=== PATIENT | female | born 1965 | race Caucasian/White ===

== ENCOUNTER 2020-10-03 14:34 | Emergency (ER) | payer MEDICAID, OTHER ==
[2020-10-03 16:16] LABS: BLOOD UREA NITROGEN,BUN 11 mg/dL (7.0-18.0); CARBON DIOXIDE,CO2 28.2 mmol/L (21.0-32.0); CHLORIDE,CL 108 mmol/L (98-107); GLUCOSE RANDOM 108 mg/dL (74-106); LIPASE 160 U/L (73-393); POTASSIUM,K 3.7 mmol/L (3.5-5.1); SODIUM,NA 143 mmol/L (136-145)
--- NOTE | 2020-10-03 16:16 | CT ---
HISTORY: Right flank pain. TECHNIQUE: Noncontrast CT abdomen and pelvis. COMPARISON: No prior. FINDINGS: The liver demonstrates a nodular contour compatible with cirrhosis. Gallstones within a not overly distended gallbladder. Borderline mild splenomegaly with the spleen measuring 13 cm transverse. Adrenal glands are normal. No focal pancreatic abnormality. No hydronephrosis. No obstructive urinary calculus. No renal mass. Urinary bladder nondistended. Prior hysterectomy. Left pelvic calcification is likely a phlebolith. - No small bowel obstruction. The appendix is not seen and may be surgically absent. No diverticulitis. No fluid collection or free air. - Atherosclerotic changes of the abdominal aorta without aneurysm. - 8-9 mm right lower lobe pulmonary nodule image #12 series 201. Small area of scarring versus atelectasis within the lingula. - Degenerative changes of the spine. No acute fractures. Degenerative changes of the sacroiliac joints. IMPRESSION: 1. Indeterminate 8-9 mm right lower lobe pulmonary nodule. Recommend obtaining a CT of the entire chest to assess for additional nodules. 2. No hydronephrosis or urinary calculus. 3. Gallstones. 4. Cirrhotic liver. 5. Borderline mild splenomegaly. 6. The appendix is not seen and may be surgically absent. Please note that all CT scans at this facility use dose modulation, iterative reconstruction, and/or weight-based dosing when appropriate to reduce radiation dose to as low as reasonably achievable. Dictated by Alhaji Aldrich MD @ 10/03/2020 4:15:[address] Alhaji Aldrich @ Oct 03 2020 4:15PM
--- NOTE | 2020-10-03 17:43 | US ---
Indication: Right upper quadrant pain with transaminitis Technique: Grade scan could of ultrasound of the right upper quadrant. Comparison: CT scan abdomen and pelvis from same day. Findings: The liver is normal in echogenicity. No intrahepatic biliary ductal dilatation is identified. The liver measures 16.1 centimeters in maximum dimension. No intrahepatic masses are identified. The gallbladder demonstrates gallstones. No sonographic Sierra`s sign is identified. The gallbladder wall measures up to 1.8 millimeters in thickness. The common bile duct measures 2.6 millimeters. The visualized portions of the pancreas are grossly normal. The right kidney measures 11.1 x 4.8 x 6.1 centimeters in size. No hydronephrosis or perinephric free fluid is identified. No free fluid is identified in the right upper quadrant. Impression: Cholelithiasis without evidence of cholecystitis. Dictated by Ruma Tellez MD @ 10/03/2020 5:42:[address] Ruma Tellez @ Oct 03 2020 5:42PM
--- NOTE | 2020-10-03 18:06 | EDM.PDOC ---
ED HPI GENERAL MEDICAL PROBLEM - General Chief Complaint: Genitourinary Problem Stated Complaint: KIDNEY STONE Time Seen by Provider: 10/03/20 14:35 Source of Information: Reports: Patient History Limitations: Reports: No Limitations - History of Present Illness INITIAL COMMENTS - FREE TEXT/NARRATIVE: HISTORY AND PHYSICAL: History of present illness: Patient is a 55-year-old female who presents to the ED today with concern of urinary incontinence and right flank pain that has been constant since she had a kidney stone 3 months ago. Patient states that she is concerned that she never passed the kidney stone and states that it was 2 to 3 mm and was diagnosed back home. Patient states that she recently moved [place] a few weeks ago but has had the right flank pain and urinary incontinence ever since her kidney stone was prior diagnosed. Patient states that she never followed up with the urologist as she knew she was moving to [place]. Patient states that she has been wearing a pad in her underwear due to the urinary incontinence for the past 3 months and states that some days the urinary incontinence is worse than others. Patient denies any low back pain associated with urinary incontinence. Patient states that she has had the same right flank pain since she was told she had a prior kidney stone and denies any change in this over the past 3 months. Patient denies any other symptoms or concerns. Patient does have a history of gallstones. Patient denies fever, chills, chest pain, shortness of breath, or cough. Denies headache, neck stiff ness, change in vision, syncope, or near syncope. Denies nausea, vomiting, diarrhea, constipation, or dysuria. Has not noted any blood in urine or stool. Patient has been eating and drinking appropriately. Review of systems: As per history of present illness and below otherwise all systems reviewed and negative. Past medical history: As per history of present illness and as reviewed below otherwise no ncontributory. Surgical history: As per history of present illness and as reviewed below otherwise noncontributory. Social history: See social history for further information Family history: As per history of present illness and as reviewed below otherwise noncontributory. Physical exam: General: Patient is alert, oriented, and in no acute distress. Patient sitting comfortably on exam table. Vitals stable and reviewed by me HEENT: Atraumatic, normocephalic, pupils equal and reactive bilaterally, negative for conjunctival pallor or scleral icterus, mucous membranes moist, TMs normal bilaterally, throat clear, neck supple, nontender, trachea midline. No drooling or trismus noted. No meningeal signs. No hot potato voice noted. Lungs: Clear to auscultation, breath sounds equal bilaterally, chest nontender. Heart: S1S2, regular rate and rhythm without overt murmur Abdomen: Soft, nondistended, mild to moderate right lower quadrant tenderness without guarding, negative rebound. Negative for masses or hepatosplenomegaly. Negative for costovertebral tenderness. Pelvis: Stable nontender. Genitourinary: Deferred. Rectal: Deferred. Skin: Intact, warm, dry. No lesions or rashes noted. Extremities: Atraumatic, negative for cords or calf pain. Neurovascular unremarkable. Neuro: Awake, alert, oriented. Cranial nerves II through XII unremarkable. Cerebellum unremarkable. Motor and sensory unremarkable throughout. Exam nonfocal. Notes: Upon arrival to the ED, patient is vitally stable and well-appearing. She does has some mild right lower quadrant abdominal pain but no CVA tenderness on exam. Presents to the ED today secondary to urinary incontinence that has been increasing over the past 3 months, right flank pain that has been persistent since a prior kidney stone 3 months ago. Will perform routine labwork and obtain abdominal pelvic CT scan without contrast as patient has had continued right flank pain since a prior diagnosis of a kidney stone 3 months ago. CBC shows thrombocytopenia at 118 and mild derangements are unremarkable. CMP shows a mild elevation in AST of 99 ALT 95 and alk phos of 188. Will obtain a right upper quadrant ultrasound. Urinalysis showed 0-2 white blood cells with 1-5 red blood cells with trace leukocyte Estrace, negative hCG. No obvious source of infection. Lipase is within normal limits. RUQ US scan shows cholelithiasis without evidence of cholecystitis and a nondilated common bile duct of 2.[address] shows an indeterminate 8 to 9 mm right lower lobe pulmonary nodule. No hydronephrosis or urinary calculus. Gallstones. Cirrhotic liver. Borderline mild splenomegaly. The appendix is not seen and may be surgically absent. All incidental findings of imaging today discussed with patient importance to have this followed up with her primary care provider. Upon reevaluation of patient, she remains comfortable and vitally stable throughout stay in ED. All incidental findings of imaging and lab work today discussed with patient and importance to have this followed up with her primary care provider and the general surgeon in regards to her gallstones. Signs and symptoms are prompt return to the ED thoroughly discussed with patient. Discussed importance for follow-up with a primary care provider and the general surgeon. Voices understanding and is agreeable to plan of care. Denies any further quest ions or concerns at this time. Diagnostics: CBC, CMP, UA, urine culture, urine hCG, lipase, abdominal pelvic CT, right upper quadrant ultrasound Therapeutics: Toradol was offered to patient but she declines at this time Prescription: None Impression: Urinary incontinence Right flank pain Transaminitis Gallstones without evidence of cholecystitis Plan: 1. You can take Tylenol as directed for pain and discomfort. 2. Follow-up with your primary care provider/general surgery/himself care provider as discussed. Return to the ED as needed and as discussed. Definitive disposition and diagnosis as appropriate pending reevaluation and review of above. Right side Pain Score (Numeric/FACES): 6 - Related Data Allergies Allergy/AdvReac Type Severity Reaction Status Date / Time erythromycin base Allergy Rash Verified 10/03/20 15:13 morphine Allergy Other Verified 10/03/20 15:13 Penicillins Allergy Rash Verified 10/03/20 15:13 Sulfa (Sulfonamide Allergy Vomiting Verified 10/03/20 15:13 Antibiotics) Home Meds: Home Meds ALPRAZolam [Alprazolam] 0.5 mg PO Q6H PRN 10/03/20 [History] PARoxetine HCl [Paxil] 20 mg PO DAILY 10/03/20 [History] cephALEXin [Keflex] 500 mg PO Q8H 5 Days #15 cap 10/05/20 [Rx] Past Medical History HEENT History: Reports: None Cardiovascular History: Reports: None Respiratory History: Reports: None Gastrointestinal History: Reports: Other (See Below) Other Gastrointestinal History: gallstones Genitourinary History: Reports: Renal Calculus Psychiatric History: Reports: Anxiety Social & Family History - Family History Family Medical History: No Pertinent Family History - Tobacco Use Years of Tobacco use: 20 Packs/Tins Daily: 0.5 - Caffeine Use Caffeine Use: Reports: None - Recreational Drug Use Recreational Drug Use: No ED ROS GENERAL - Review of Systems Review Of Systems: Comprehensive ROS is negative, except as noted in HPI. ED EXAM, GENERAL - Physical Exam Exam: See Below (See dictation) Course - Vital Signs Last Recorded V/S: Last Vital Signs Temp 98 F 10/03/20 18:14 Pulse 82 10/03/20 18:14 Resp 16 10/03/20 18:14 BP 142/84 H 10/03/20 18:14 Pulse Ox 98 10/03/20 18:14 - Orders/Labs/Meds Labs: Laboratory Tests 10/03/20 10/03/20 10/03/20 Range/Units 15:00 15:00 15:49 WBC 4.38 (4.0-11.0) K/uL RBC 4.14 L (4.30-5.90) M/uL Hgb 14.8 (12.0-16.0) g/dL Hct 44.1 (36.0-46.0) % MCV 106.5 H (80.0-98.0) fL MCH 35.7 H (27.0-32.0) pg MCHC 33.6 (31.0-37.0) g/dL RDW Std Deviation 58.5 (28.0-62.0) fl RDW Coeff of Amtthew 15 (11.0-15.0) % Plt Count 118 L (150-400) K/uL MPV 11.30 (7.40-12.00) fL Neut % (Auto) 43.2 L (48.0-80.0) % Lymph % (Auto) 43.4 H (16.0-40.0) % [place] % (Auto) 8.2 (0.0-15.0) % Eos % (Auto) 4.1 (0.0-7.0) % Baso % (Auto) 1.1 (0.0-1.5) % Neut # (Auto) 1.9 (1.4-5.7) K/uL Lymph # (Auto) 1.9 (0.6-2.4) K/uL [place] # (Auto) 0.4 (0.0-0.8) K/uL Eos # (Auto) 0.2 (0.0-0.7) K/uL Baso # (Auto) 0.1 (0.0-0.1) K/uL Nucleated RBC % 0.0 /100WBC Nucleated RBCs # 0 K/uL Sodium (136-145) mmol/L Potassium (3.5-5.1) mmol/L Chloride (98-107) mmol/L Carbon Dioxide (21.0-32.0) mmol/L BUN (7.0-18.0) mg/dL Creatinine (0.6-1.0) mg/dL Est Cr Clr Drug Dosing mL/min Estimated GFR (MDRD) ml/min Glucose (74-106) mg/dL Calcium (8.5-10.1) mg/dL Total Bilirubin (0.2-1.0) mg/dL AST (15-37) IU/L ALT (14-63) IU/L Alkaline Phosphatase (46-116) U/L Total Protein (6.4-8.2) g/dL Albumin (3.4-5.0) g/dL Globulin (2.6-4.0) g/dL Albumin/Globulin Ratio (0.9-1.6) Lipase (73-393) U/L Urine Color YELLOW Urine Appearance HAZY Urine pH 6.0 (5.0-8.0) Ur Specific [place] 1.025 (1.001-1.035) Urine Protein NEGATIVE (NEGATIVE) mg/dL Urine Glucose (UA) NEGATIVE (NEGATIVE) mg/dL Urine Ketones NEGATIVE (NEGATIVE) mg/dL Urine Occult Blood TRACE-INTACT H (NEGATIVE) Urine Nitrite NEGATIVE (NEGATIVE) Urine Bilirubin NEGATIVE (NEGATIVE) Urine Urobilinogen 1.0 (<2.0) EU/dL Ur Leukocyte Esterase TRACE H (NEGATIVE) Urine RBC 1-5 (0-2/HPF) Urine WBC 0-2 (0-5/HPF) Ur Epithelial Cells FEW (NONE-FEW) Urine Bacteria FEW (NEGATIVE) Urine HCG, Qual NEGATIVE (NEGATIVE) 10/03/20 Range/Units 15:49 WBC (4.0-11.0) K/uL RBC (4.30-5.90) M/uL Hgb (12.0-16.0) g/dL Hct (36.0-46.0) % MCV (80.0-98.0) fL MCH (27.0-32.0) pg MCHC (31.0-37.0) g/dL RDW Std Deviation (28.0-62.0) fl RDW Coeff of Matthew (11.0-15.0) % Plt Count (150-400) K/uL MPV (7.40-12.00) fL Neut % (Auto) (48.0-80.0) % Lymph % (Auto) (16.0-40.0) % [place] % (Auto) (0.0-15.0) % Eos % (Auto) (0.0-7.0) % Baso % (Auto) (0.0-1.5) % Neut # (Auto) (1.4-5.7) K/uL Lymph # (Auto) (0.6-2.4) K/uL [place] # (Auto) (0.0-0.8) K/uL Eos # (Auto) (0.0-0.7) K/uL Baso # (Auto) (0.0-0.1) K/uL Nucleated RBC % /100WBC Nucleated RBCs # K/uL Sodium 143 (136-145) mmol/L Potassium 3.7 (3.5-5.1) mmol/L Chloride 108 H (98-107) mmol/L Carbon Dioxide 28.2 (21.0-32.0) mmol/L BUN 11 (7.0-18.0) mg/dL Creatinine 0.9 (0.6-1.0) mg/dL Est Cr Clr Drug Dosing 60.99 mL/min Estimated GFR (MDRD) > 60.0 ml/min Glucose 108 H (74-106) mg/dL Calcium 8.5 (8.5-10.1) mg/dL Total Bilirubin 0.8 (0.2-1.0) mg/dL AST 99 H (15-37) IU/L ALT 95 H (14-63) IU/L Alkaline Phosphatase 188 H (46-116) U/L Total Protein 7.6 (6.4-8.2) g/dL Albumin 2.8 L (3.4-5.0) g/dL Globulin 4.8 H (2.6-4.0) g/dL Albumin/Globulin Ratio 0.6 L (0.9-1.6) Lipase 160 (73-393) U/L Urine Color Urine Appearance Urine pH (5.0-8.0) Ur Specific [place] (1.001-1.035) Urine Protein (NEGATIVE) mg/dL Urine Glucose (UA) (NEGATIVE) mg/dL Urine Ketones (NEGATIVE) mg/dL Urine Occult Blood (NEGATIVE) Urine Nitrite (NEGATIVE) Urine Bilirubin (NEGATIVE) Urine Urobilinogen (<2.0) EU/dL Ur Leukocyte Esterase (NEGATIVE) Urine RBC (0-2/HPF) Urine WBC (0-5/HPF) Ur Epithelial Cells (NONE-FEW) Urine Bacteria (NEGATIVE) Urine HCG, Qual (NEGATIVE) Departure - Departure Time of Disposition: 18:05 Disposition: Home, Self-Care 01 Clinical Impression: Urinary frequency, Right flank pain, Transaminitis, Gallstones - Discharge Information Instructions: Cholelithiasis, [id number], Urinary Frequency, Adult Referrals: PCP,Not In Area [Primary Care Provider] - Forms: ED Department Discharge Additional Instructions: The following information is given to patients seen in the emergency department who are being discharged to home. This information is to outline your options for follow-up care. We provide all patients seen in our emergency department with a follow-up referral. The need for follow-up, as well as the timing and circumstances, are variable depending upon the specifics of your emergency department visit. If you don't have a primary care physician on staff, we will provide you with a referral. We always advise you to contact your personal physician following an emergency department visit to inform them of the circumstance of the visit and f or follow-up with them and/or the need for any referrals to a consulting specialist. The emergency department will also refer you to a specialist when appropriate. This referral assures that you have the opportunity for follow-up care with a specialist. All of these measure are taken in an effort to provide you with optimal care, which includes your follow-up. Under all circumstances we always encourage you to contact your private physician who remains a resource for coordinating your care. When calling for follow-up care, please make the office aware that this follow-up is from your recent emergency room visit. If for any reason you are refused follow-up, please contact the [facility] Emergency Department at and asked to speak to the emergency department charge nurse. [facility] [address] [place] [id number] [facility] [address] [place] [address] [facility] - General Surgery Professional Building [address] [facility], [address] [place] [address] [facility] [address] [place] [address] 1. You can take Tylenol as directed for pain and discomfort. 2. Follow-up with your primary care provider/general surgery/himself care provider as discussed. Return to the ED as needed and as discussed. Sepsis Event Note (ED) - Evaluation Sepsis Screening Result: No Definite Risk
== END 2020-10-03 18:15 | disposition home or self-care (01) ==
LOC: MW.ED 14:34
DX: K80.80 Other cholelithiasis without obstruction (principal); R74.01 Elevation of levels of liver transaminase levels; R35.0 Frequency of micturition; Z88.6 Allergy status to analgesic agent; Z88.2 Allergy status to sulfonamides; Z88.1 Allergy status to other antibiotic agents; Z88.0 Allergy status to penicillin; Z72.0 Tobacco use
CPT/HCPCS: 36415; 74176; 74176-26; 76705; 76705-26; 80053; 81001; 81025; 83690; 85025; 87086; 87088; 87186; 99284; 99284-25

== ENCOUNTER 2021-01-31 12:56 | Emergency (ER) | payer MEDICAID ==
[2021-01-31] MEDS ORDERED: Cephalexin 500 MG Cap PO ONE (14:59)
--- NOTE | 2021-01-31 15:52 | EDM.PDOC ---
ED HPI GENERAL MEDICAL PROBLEM - General Chief Complaint: Skin Complaint Stated Complaint: SPLINTER IN PTS FINGER Time Seen by Provider: 01/31/21 14:49 - History of Present Illness INITIAL COMMENTS - FREE TEXT/NARRATIVE: CHIEF COMPLAINT(S): Splinter in finger HISTORY OF PRESENT ILLNESS: This is a 55-year-old woman without any significant past medical history who presents to the emergency department with splinter in finger. The patient states that for the last couple of days she has had a splinter in her left finger she describes as her index finger which she is unable to get out. She states that she is experiencing some pain and swelling in the distal aspect of that left finger. She states that there is some redness also. She rates her pain as 7 out of 10 without any radiation. She denies any numbness, tingling, or weakness. She states that she is able to move her finger. She states that she initially got a little bit of the wooden splinter out however she thinks that there is some left. She denies any fevers or chills. She denies any other symptoms. Pain is exacerbated by movement. There are no relieving factors REVIEW OF SYSTEMS: Constitutional: Denies fever, chills. Eyes: Denies eye pain Ears, Nose, Mouth, & Throat: Denies earache Cardiovascular: Denies chest pain Respiratory: Denies shortness of breath Gastrointestinal: Denies Nausea, vomiting, diarrhea, hematochezia. Genitourinary: Denies hematuria Skin: Positive for redness to left index anger MSK: Positive for left index finger swelling. Neurological: Denies blurred vision, numbness, tingling, weakness Psychiatric: Denies depression PAST MEDICAL HISTORY: As per history of present illness and as reviewed below otherwise noncontributory. SURGICAL HISTORY: As per history of present illness and as reviewed below [facility] erwise noncontributory. SOCIAL HISTORY: As per history of present illness and as reviewed below otherwise noncontributory. FAMILY HISTORY: As per history of present illness and as reviewed below ot erwise noncontributory. EXAMINATION OF ORGAN SYSTEMS/BODY AREAS: Constitutional: Blood pressure is 142/89, heart rate 77 respiratory rate 18 with a saturation of 96% on room air. Temperature 36.1 General: Well-appearing woman who is in no acute distress Psychiatric: Appropriate mood and affect. Eyes: No scleral icterus or conjunctival erythema Cardiovascular: Regular, rate, and rhythm. No gallops, murmurs, or rubs. Bilateral upper extremity pulses symmetric and intact. Respiratory: Lungs clear to auscultation bilaterally. No wheezes, rales, or rhonchi. Musculoskeletal: Normal range of motion. Skin: There is some erythema and some swelling on the distal crease of the left index finger on the palmar aspect. There is no obvious splinter that can be palpated or visualized. No crepitus. Neurological: Alert, GCS 15 distal sensation is intact MEDICAL DECISION MAKING AND COURSE IN THE ED WITH INTERPRETATION/REVIEW OF DIAGNOSTIC STUDIES: This is a 55-year-old woman without any significant past medical history presents to the emergency department with a swollen and red left index finger at the distal tip after removing a splinter. At this time there is no obvious splinter. I did use bedside ultrasound however no foreign body could be identified. I do not believe there is any utility in obtaining an x-ray. We will treat the patient for cellulitis and have her follow-up with her primary care physician. She was given strict return precautions. She was amenable to discharge and had no further questions. DISPOSITION: The patient was discharged home in stable condition. The patient will follow up with primary care physician in 3 to 5 days CONDITION: Fair PROCEDURES: None FINAL IMPRESSION(S)/DIAGNOSES: 1. Acute left index finger cellulitis Julius Baker M.D. left hand Pain Score (Numeric/FACES): 7 - Related Data Allergies Allergy/AdvReac Type Severity Reaction Status Date / Time erythromycin base Allergy Rash Verified 01/31/21 14:50 morphine Allergy Other Verified 01/31/21 14:50 Penicillins Allergy Rash Verified 01/31/21 14:50 Sulfa (Sulfonamide Allergy Vomiting Verified 01/31/21 14:50 Antibiotics) Home Meds: Home Meds ALPRAZolam [Alprazolam] 0.5 mg PO Q6H PRN 10/03/20 [History] PARoxetine HCl [Paxil] 20 mg PO DAILY 10/03/20 [History] cephALEXin [Keflex] 500 mg PO Q8H 5 Days #15 cap 10/05/20 [Rx] cephALEXin [Cephalexin] 500 mg PO Q6HR #28 tablet 01/31/21 [Rx] Past Medical History HEENT History: Reports: None Cardiovascular History: Reports: None Respiratory History: Reports: None Gastrointestinal History: Reports: Other (See Below) Other Gastrointestinal History: gallstones Genitourinary History: Reports: Renal Calculus Psychiatric History: Reports: Anxiety - Infectious Disease History Infectious Disease History: Reports: Chicken Pox Social & Family History - Family History Family Medical History: No Pertinent Family History - Caffeine Use Caffeine Use: Reports: None ED ROS GENERAL - Review of Systems Review Of Systems: See Below ED EXAM, SKIN/RASH Exam: See Below Course - Vital Signs Last Recorded V/S: Last Vital Signs Temp 35.9 C L 01/31/21 16:10 Pulse 72 01/31/21 16:10 Resp 18 01/31/21 16:10 BP 112/63 01/31/21 16:10 Pulse Ox 94 L 01/31/21 16:10 - Orders/Labs/Meds Meds: Medications Discontinued Medications Generic Name Dose Route Start Last Admin Trade Name Freq PRN Reason Stop Dose Admin Cephalexin 500 mg 01/31/21 14:59 01/31/21 15:05 Cephalexin 500 Mg Cap PO 01/31/21 15:00 500 mg ONETIME ONE Administration Departure - Departure Time of Disposition: 15:51 Disposition: Home, Self-Care 01 Condition: Fair Clinical Impression: Cellulitis, Splinter - Discharge Information *PRESCRIPTION DRUG MONITORING PROGRAM REVIEWED*: No *COPY OF PRESCRIPTION DRUG MONITORING REPORT IN PATIENT JULI: No Prescriptions: cephALEXin [Cephalexin] 500 mg PO Q6HR #28 tablet Instructions: Cellulitis, Adult, [id number] Referrals: Allen Baker MD [Primary Care Provider] - Forms: ED Department Discharge Additional Instructions: You were evaluated today on an emergent basis. At this time using ultrasound at bedside and direct visualization if there is any splinter left it is small. There is evidence of infection therefore we started you on Keflex. I recommend that she complete the entire course. Please use Tylenol and Motrin for pain rel ief. If you have any worsening swelling, redness, increased pain I would like you to return to the emergency department. Otherwise please follow-up with primary care physician in 3 to 5 days. [facility] - Primary Care [address] [place] [id number] [facility] [address] [place] [address] The patient is informed of any results of their evaluation and diagnostic workup and all questions are answered. They are given discharge instructions and return precautions. The patient is stable for discharge. The patient states they understand and agree with the plan and that they will return if their symptoms get worse or if they have any new concerns. The following information is given to patients seen in the emergency department who are being discharged to home. This information is to outline your options for follow-up care. We provide all patients seen in our emergency department with a follow-up referral. The need for follow-up, as well as the timing and circumstances, are variable depending upon the specifics of your emergency department visit. If you don't have a primary care physician on staff, we will provide you with a referral. We always advise you to contact your personal physician following an emergency department visit to inform them of the circumstance of the visit and for follow-up with them and/or the need for any referrals to a consulting specialist. The emergency department will also refer you to a specialist when appropriate. This referral assures that you have the opportunity for follow-up care with a specialist. All of these measure are taken in an effort to provide you with optimal care, which includes your follow-up. Under all circumstances we always encourage you to contact your private physician who remains a resource for coordinating your care. When calling for follow-up care, please make the office aware that this follow-up is from your recent emergency room visit. If for any reason you are refused follow-up, please contact the [facility] Emergency Department at and asked to speak to the emergency department charge nurse. Sepsis Event Note (ED) - Evaluation Sepsis Screening Result: No Definite Risk
== END 2021-01-31 16:11 | disposition home or self-care (01) ==
LOC: MW.ED 12:56
DX: S60.451A Superficial foreign body of left index finger, initial encounter (principal); L03.012 Cellulitis of left finger; Z88.0 Allergy status to penicillin; Z88.1 Allergy status to other antibiotic agents; Z88.5 Allergy status to narcotic agent; Z88.2 Allergy status to sulfonamides; W45.8XXA Other foreign body or object entering through skin, initial encounter
CPT/HCPCS: 99283; A9270

== ENCOUNTER 2021-09-15 18:02 | Emergency (ER) | payer MEDICAID ==
[2021-09-15] MEDS ORDERED: Sodium Chloride 0.9% 20 ML SDV IV PRN (18:03)
[2021-09-15] MEDS ORDERED: Sodium Chloride 0.9% 2.5 ML Syringe FLUSH PRN (18:03)
[2021-09-15] MEDS ORDERED: Sodium Chloride 0.9% 10 ML Syringe FLUSH PRN (18:03)
[2021-09-15] MEDS ORDERED: LORazepam 2 MG/ML SDV IVPUSH ONE (18:06)
[2021-09-15] MEDS ORDERED: LORazepam 2 MG/ML SDV ONE (18:07)
[2021-09-15 18:40] LABS: BLOOD UREA NITROGEN,BUN 8 mg/dL (7.0-18.0); CARBON DIOXIDE,CO2 25.4 mmol/L (21.0-32.0); CHLORIDE,CL 108 mmol/L (98-107); GLUCOSE RANDOM 117 mg/dL (74-106); POTASSIUM,K 3.8 mmol/L (3.5-5.1); SODIUM,NA 142 mmol/L (136-145)
== END 2021-09-15 20:58 ==
LOC: MW.ED 18:02
DX: I63.9 Cerebral infarction, unspecified (principal); E66.9 Obesity, unspecified; Z88.0 Allergy status to penicillin; Z88.1 Allergy status to other antibiotic agents; Z88.2 Allergy status to sulfonamides; Z68.39 Body mass index [BMI] 39.0-39.9, adult
CPT/HCPCS: 36415; 70450; 80053; 84484; 85025; 85610; 85730; 93005; 96365; 96375; 99285; J1953; J2060

== ENCOUNTER 2021-10-18 08:29 | Emergency (ER) | payer MEDICAID | END 2021-10-18 09:15 | LOC: MW.ED 08:29 | DX: Z02.89 Encounter for other administrative examinations (principal); Z88.1 Allergy status to other antibiotic agents; Z88.5 Allergy status to narcotic agent; Z88.2 Allergy status to sulfonamides; Z86.73 Personal history of transient ischemic attack (TIA), and cerebral infarction without residual deficits | CPT/HCPCS: 99282 ==

== ENCOUNTER 2021-10-31 02:36 | Emergency (ER) | payer MEDICAID ==
[2021-10-31] MEDS ORDERED: Sodium Chloride 0.9% 2.5 ML Syringe FLUSH PRN (02:40)
[2021-10-31] MEDS ORDERED: Sodium Chloride 0.9% 10 ML Syringe FLUSH PRN (02:40)
[2021-10-31 03:33] LABS: BLOOD UREA NITROGEN,BUN 13 mg/dL (7.0-18.0); CARBON DIOXIDE,CO2 23.7 mmol/L (21.0-32.0); CHLORIDE,CL 105 mmol/L (98-107); GLUCOSE RANDOM 114 mg/dL (74-106); POTASSIUM,K 3.5 mmol/L (3.5-5.1); SODIUM,NA 138 mmol/L (136-145)
[2021-10-31] MEDS ORDERED: levETIRAcetam 500 MG Tab ONE (04:16)
== END 2021-10-31 06:34 | disposition home or self-care (01) ==
LOC: MW.ED 02:36
DX: G40.89 Other seizures (principal); Z88.5 Allergy status to narcotic agent; Z88.2 Allergy status to sulfonamides; Z88.0 Allergy status to penicillin; Z88.1 Allergy status to other antibiotic agents
CPT/HCPCS: 36415; 70450; 80053; 83735; 84146; 85025; 96365; 99285; J1953; J3490

== ENCOUNTER 2022-06-09 18:53 | Observation (INO) | payer MEDICAID ==
[2022-06-09] MEDS: Morphine 4 MG/ML Syringe IVPUSH ONE ×2 (19:39→19:40)
[2022-06-09] MEDS ORDERED: Acetaminophen 500 MG Tab PO ONE (20:04)
[2022-06-09 20:29] LABS: CARBON DIOXIDE,CO2 28.2 mmol/L (21.0-32.0); POTASSIUM,K 4.2 mmol/L (3.5-5.1)
[2022-06-09] MEDS ORDERED: Iopamidol 755 MG/ML 500 ML Multipack Bottle IVPUSH ONE (20:39)
[2022-06-09] MEDS ORDERED: Sodium Chloride 0.9% 500 ML IV SCH (22:00)
[2022-06-10] MEDS ORDERED: Morphine 4 MG/ML Syringe IVPUSH ONE (00:19)
[2022-06-10] MEDS ORDERED: Ondansetron 4 MG Tab.DIS PO PRN (02:09)
[2022-06-10] MEDS ORDERED: Acetaminophen 650 MG in Premix Bag 1 BAG IV PRN (02:16)
[2022-06-10] MEDS ORDERED: Non-Formulary Medication 1 Each (Lorazepam 0.5 MG Tablet) PO PRN (02:17)
[2022-06-10] MEDS ORDERED: Acetaminophen 325 MG Tab ONE (02:42)
[2022-06-10] MEDS: Acetaminophen 325 MG Tab PO PRN ×3 (02:46→16:51)
[2022-06-10] MEDS ORDERED: LEVETIRACETAM 250 MG PO SCH (09:00)
[2022-06-10] MEDS ORDERED: FLUOXETINE 10 MG PO SCH (09:00)
[2022-06-11 07:13] LABS: CARBON DIOXIDE,CO2 25.7 mmol/L (21.0-32.0); POTASSIUM,K 3.5 mmol/L (3.5-5.1)
[2022-06-11] MEDS: Acetaminophen 325 MG Tab PO PRN (20:05)
[2022-06-12] MEDS: Acetaminophen 325 MG Tab PO PRN (03:53)
[2022-06-12] MEDS: Ibuprofen 400 MG Tab PO PRN (11:05)
[2022-06-12] MEDS ORDERED: Iopamidol 755 MG/ML 500 ML Multipack Bottle IVPUSH ONE (17:13)
[2022-06-13] MEDS: Ibuprofen 400 MG Tab PO PRN (02:38)
== END 2022-06-13 11:35 | disposition home or self-care (01) ==
LOC: MW.ED 18:53 → MW.MS 06-10 01:07
PROVIDERS: ADMIT Surgery; ATTEND Surgery
DX: S37.011A Minor contusion of right kidney, initial encounter (principal); S37.012A Minor contusion of left kidney, initial encounter; S22.41XA Multiple fractures of ribs, right side, initial encounter for closed fracture; F41.9 Anxiety disorder, unspecified; F32.A Depression, unspecified; R56.9 Unspecified convulsions; K76.0 Fatty (change of) liver, not elsewhere classified; F17.210 Nicotine dependence, cigarettes, uncomplicated; J90 Pleural effusion, not elsewhere classified; K80.20 Calculus of gallbladder without cholecystitis without obstruction; J98.11 Atelectasis; Z88.6 Allergy status to analgesic agent; Z88.1 Allergy status to other antibiotic agents; Z86.73 Personal history of transient ischemic attack (TIA), and cerebral infarction without residual deficits; Z90.710 Acquired absence of both cervix and uterus; Z90.49 Acquired absence of other specified parts of digestive tract; Z88.0 Allergy status to penicillin; Z88.2 Allergy status to sulfonamides; Z79.899 Other long term (current) drug therapy; Z20.822 Contact with and (suspected) exposure to COVID-19; W19.XXXA Unspecified fall, initial encounter
CPT/HCPCS: 36415; 70450; 71045; 71046; 71260; 74177; 80048; 80053; 81001; 85025; 85610; 87635; 96360; 97110; 97161; 97530; 99285; A9270; J7040; Q9967; 99284; G0378; J2270; U0002

== ENCOUNTER 2023-08-24 11:54 | Emergency (ER) | payer MEDICAID, OTHER ==
[2023-08-24 12:56] LABS: BASOPHILS ABSOLUTE AUTO 0.07 K/uL (0.00-0.20); BASOPHILS PERCENT AUTO 1.1 % (0.0-1.0); EOSINOPHILS PERCENT AUTO 3.2 % (0.0-6.0); HEMATOCRIT 46.1 % (37.0-47.0); HEMOGLOBIN 15.9 g/dL (12.0-16.0); IMMATURE GRAN ABSOLUTE AUTO 0.04 K/uL (0.00-0.05); IMMATURE GRAN PERCENT AUTO 0.6 % (0.0-0.4); LYMPHOCYTES ABSOLUTE AUTO 1.82 K/uL (1.00-4.80); LYMPHOCYTES PERCENT AUTO 29.2 % (24.0-44.0); MEAN CORPUSCULAR HEMOGLOBIN 34.6 pg (28.0-32.0); MEAN CORPUSCULAR HGB CONC 34.5 g/dL (32.0-36.0); MEAN CORPUSCULAR VOLUME 100.4 fL (83.0-99.0); MEAN PLATELET VOLUME 10.7 fL (9.4-12.3); MONOCYTES ABSOLUTE AUTO 0.68 K/uL (0.00-0.80); MONOCYTES PERCENT AUTO 10.9 % (0.0-8.0); NEUTROPHILS ABSOLUTE AUTO 3.42 K/uL (1.80-7.70); PLATELET COUNT,PLT 146 K/uL (150-400); RED BLOOD CELL COUNT 4.59 M/uL (4.10-5.30); WHITE BLOOD CELL COUNT,WBC 6.23 K/uL (3.9-11.3)
[2023-08-24 13:37] LABS: A/G RATIO 0.7 (0.9-1.6); ALBUMIN 3.1 g/dL (3.4-5.0); BILIRUBIN TOTAL 0.7 mg/dL (0.2-1.0); CALCIUM 8.8 mg/dL (8.5-10.1); CARBON DIOXIDE,CO2 26.2 mmol/L (21.0-32.0); CREATININE 0.7 mg/dL (0.6-1.0); EST CRCL DRUG DOSING (CG) 75.65 mL/min; POTASSIUM,K 3.9 mmol/L (3.5-5.1); PROTEIN TOTAL,TP 7.6 g/dL (6.4-8.2)
[2023-08-24 14:02] LABS: APPEARANCE,URINE CLEAR; BILIRUBIN,URINE NEGATIVE (NEGATIVE); COLOR,URINE YELLOW; GLUCOSE,URINE NEGATIVE (NEGATIVE); KETONES,URINE NEGATIVE (NEGATIVE); LEUKOCYTE ESTERASE,URINE NEGATIVE (NEGATIVE); NITRITE,URINE POSITIVE (NEGATIVE); OCCULT BLOOD,URINE NEGATIVE (NEGATIVE); PROTEIN,URINE NEGATIVE (NEGATIVE)
[2023-08-24] MEDS: Sodium Chloride 0.9% 2.5 ML Syringe FLUSH PRN (14:15)
[2023-08-24] MEDS: Sodium Chloride 0.9% 10 ML Syringe FLUSH PRN (14:15)
[2023-08-24 14:33] LABS: BACTERIA,URINE MANY (NEGATIVE); EPITHELIAL CELLS,URINE FEW (NONE-FEW); RBC,URINE 0-1 (0-2/HPF)
[2023-08-24] MEDS: Nitrofurantoin Monohydrate/Macrocrystalline 100 MG Cap PO ONE (15:10)
[2023-08-24] MEDS: Ondansetron 4 MG Tab.DIS PO ONE (15:10)
== END 2023-08-24 15:17 | disposition home or self-care (01) ==
LOC: MW.ED 11:54
DX: K80.20 Calculus of gallbladder without cholecystitis without obstruction (principal); N39.0 Urinary tract infection, site not specified; Z75.8 Other problems related to medical facilities and other health care; Z88.0 Allergy status to penicillin; Z88.1 Allergy status to other antibiotic agents; Z88.2 Allergy status to sulfonamides; Z88.5 Allergy status to narcotic agent; Z88.8 Allergy status to other drugs, medicaments and biological substances; Z79.899 Other long term (current) drug therapy
CPT/HCPCS: 36415; 76705; 80053; 81001; 83690; 85025; 87086; 99284; A9270; J3490; 87088; 87186; 99283

== ENCOUNTER 2023-09-23 13:26 | Emergency (ER) | payer MEDICAID | END 2023-09-23 14:03 | disposition home or self-care (01) | LOC: MW.ED 13:26 | DX: K04.7 Periapical abscess without sinus (principal); Z88.0 Allergy status to penicillin; Z88.1 Allergy status to other antibiotic agents; Z88.2 Allergy status to sulfonamides; Z88.8 Allergy status to other drugs, medicaments and biological substances; Z79.899 Other long term (current) drug therapy; Z75.8 Other problems related to medical facilities and other health care | CPT/HCPCS: 99283 ==

== ENCOUNTER 2024-06-14 12:08 | Emergency (ER) | payer MEDICARE, MEDICAID | END 2024-06-14 14:36 | LOC: MW.ED 12:08 | DX: Z02.89 Encounter for other administrative examinations (principal); K04.7 Periapical abscess without sinus; Z86.69 Personal history of other diseases of the nervous system and sense organs; Z86.59 Personal history of other mental and behavioral disorders; Z79.899 Other long term (current) drug therapy; Z88.0 Allergy status to penicillin; Z88.1 Allergy status to other antibiotic agents; Z88.2 Allergy status to sulfonamides; Z88.8 Allergy status to other drugs, medicaments and biological substances; Z88.6 Allergy status to analgesic agent; Z75.8 Other problems related to medical facilities and other health care | CPT/HCPCS: 99283 ==

== ENCOUNTER 2024-12-25 15:31 | Emergency (ER) | payer MEDICARE, MEDICAID ==
[2024-12-25 16:41] LABS: BASOPHILS ABSOLUTE AUTO 0.08 K/uL (0.00-0.20); BASOPHILS PERCENT AUTO 1.5 % (0.0-1.0); EOSINOPHILS ABSOLUTE AUTO 0.19 K/uL (0.00-0.45); EOSINOPHILS PERCENT AUTO 3.5 % (0.0-6.0); IMMATURE GRAN ABSOLUTE AUTO 0.01 K/uL (0.00-0.05); IMMATURE GRAN PERCENT AUTO 0.2 % (0.0-0.4); LYMPHOCYTES ABSOLUTE AUTO 1.80 K/uL (1.00-4.80); LYMPHOCYTES PERCENT AUTO 33.4 % (24.0-44.0); MEAN PLATELET VOLUME 11.0 fL (9.4-12.3); MONOCYTES ABSOLUTE AUTO 0.70 K/uL (0.00-0.80); MONOCYTES PERCENT AUTO 13.0 % (0.0-8.0); NEUTROPHILS ABSOLUTE AUTO 2.61 K/uL (1.80-7.70); NEUTROPHILS PERCENT AUTO 48.4 % (41.0-71.0); NRBC ABSOLUTE 0.00 K/uL (0.00-0.02); NRBC PERCENT 0.0 /100WBC (0.0-0.2); PLATELET COUNT,PLT 136 K/uL (150-400); RED BLOOD CELL COUNT 4.48 M/uL (4.10-5.30); WHITE BLOOD CELL COUNT,WBC 5.39 K/uL (3.9-11.3)
[2024-12-25 16:42] LABS: APPEARANCE,URINE CLEAR; GLUCOSE,URINE NEGATIVE (NEGATIVE); OCCULT BLOOD,URINE NEGATIVE (NEGATIVE)
[2024-12-25 16:50] LABS: EPITHELIAL CELLS,URINE RARE (NONE-FEW)
[2024-12-25 17:22] LABS: A/G RATIO 0.9 (0.9-1.6); ALANINE AMINOTRANSFERASE,ALT 42.0 IU/L (14-63); ASPARTATE AMNIOTRANSFERASE,AST 41.0 IU/L (15-37); BILIRUBIN TOTAL 1.3 mg/dL (0.2-1.0); BLOOD UREA NITROGEN,BUN 17.0 mg/dL (7.0-18.0); CARBON DIOXIDE,CO2 26.9 mmol/L (21.0-32.0); CHLORIDE,CL 108.0 mmol/L (98-107); CREATININE 0.7 mg/dL (0.6-1.0); EST CRCL DRUG DOSING (CG) 74.72 mL/min; ESTIMATED GFR 100.0 mL/min (>60); GLUCOSE RANDOM 102.0 mg/dL (74-106); POTASSIUM,K 4.0 mmol/L (3.5-5.1); PRO B-TYPE NATRIUR PEPT,BNPPRO 88.0 pg/mL (0-125); PROTEIN TOTAL,TP 7.1 g/dL (6.4-8.2); SODIUM,NA 141.0 mmol/L (136-145)
[2024-12-25] MEDS: diphenhydrAMINE 50 MG/ML SDV IVPUSH ONE (17:58)
[2024-12-25] MEDS: Prochlorperazine 10 MG/2 ML SDV IVPUSH ONE (17:58)
[2024-12-25] MEDS: Nitrofurantoin Monohydrate/Macrocrystalline 100 MG Cap PO ONE (18:39)
== END 2024-12-25 18:41 | disposition home or self-care (01) ==
LOC: MW.ED 15:31
DX: N39.0 Urinary tract infection, site not specified (principal); S80.862A Insect bite (nonvenomous), left lower leg, initial encounter; S80.861A Insect bite (nonvenomous), right lower leg, initial encounter; M54.2 Cervicalgia; G89.29 Other chronic pain; Z88.1 Allergy status to other antibiotic agents; Z88.8 Allergy status to other drugs, medicaments and biological substances; Z88.0 Allergy status to penicillin; Z88.2 Allergy status to sulfonamides; Z79.899 Other long term (current) drug therapy; Z86.69 Personal history of other diseases of the nervous system and sense organs; W57.XXXA Bitten or stung by nonvenomous insect and other nonvenomous arthropods, initial encounter
CPT/HCPCS: 36415; 70450; 70450-26; 72125; 72125-26; 80053; 81001; 83880; 85025; 85652; 86140; 99283; 99284; A9270-GY